=== PATIENT | male | born 1960 | race African-American/Black ===

== ENCOUNTER 2017-09-28 17:13 | Emergency (ER) | payer OTHER ==
[~2017-09-28] VITALS: Ht 175.3 cm; Wt 64.2 kg
[2017-09-28] MEDS ORDERED: ULTRACET1 TABLET PO (18:33)
[2017-09-28] MEDS ORDERED: FLEXERIL10 MG PO (18:33)
[2017-09-28 18:38] VITALS: BP 187/120
== END 2017-09-28 18:40 | disposition home or self-care (01) ==
LOC: EME 17:13
DX: G89.29 Other chronic pain (principal); M25.512 Pain in left shoulder; I10 Essential (primary) hypertension
CPT/HCPCS: 73030; 93005; 99281; 99283